=== PATIENT | female | born 1985 | race Caucasian/White ===

== ENCOUNTER 2017-04-25 13:25 | Emergency (ER) | END 2017-04-25 16:12 | disposition left against medical advice (07) | LOC: UCCORT 13:25 | DX: H57.9 Unspecified disorder of eye and adnexa (principal); Z53.21 Procedure and treatment not carried out due to patient leaving prior to being seen by health care provider ==

== ENCOUNTER 2020-07-12 14:07 | Inpatient (IN) ==
[2020-07-12] MEDS ORDERED: Morphine 4 MG/ML VIAL (1 ml) IV ONE (17:47)
[2020-07-12] MEDS ORDERED: NS 0.9% 1000 ml BAG 1,000 ML IV ONE (17:47)
[2020-07-12] MEDS ORDERED: cefTRIAXone 1 gm/50 mL NS BAG 1 GM/50 ML BAG IV ONE (17:49)
[2020-07-12] MEDS ORDERED: metroNIDAZOLE IV 500 MG/100ML 500 MG/100 ML BAG IVPB ONE (17:50)
[2020-07-12 18:24] LABS: ABS Eosinophils 0.1 10^3/ul (0-0.6); ABS Lymphocytes 1.5 10^3/ul (1.0-4.8); ABS Monocytes 0.5 10^3/ul (0-0.8); ABS Neutrophils 6.7 10^3/ul (1.5-7.7); Eosinophil % 0.6 %; Hematocrit 39 % (35-47); Lymphocyte % 16.7 %; Mean Corpuscular HGB Conc 33 g/dL (31-36); Mean Corpuscular Hemoglobin 31 pg (27-31); Mean Corpuscular Volume 94 fL (80-97); Platelet Count 246 10^3/uL (150-450); Red Blood Count 4.14 10^6 /uL (3.70-4.87); Red Cell Distribution Width 14 % (10-15); White Blood Count 8.8 10^3/uL (3.5-10.8)
[2020-07-12] MEDS ORDERED: Buffered Lidocaine 1% SYRIN 1 ml INTRADERM ONE (18:35)
[2020-07-12 18:46] LABS: Anion Gap 7 mmol/L (2-11); Blood Urea Nitrogen 7 mg/dL (6-24); C Reactive Protein 109.99 mg/L (<8.01); CO2 Carbon Dioxide 27 mmol/L (22-32); Calcium 9.7 mg/dL (8.6-10.3); Chloride 101 mmol/L (101-111); EGFR African American 141.5 (>60); Glucose 78 mg/dL (70-100); Potassium 3.5 mmol/L (3.5-5.0); Sodium 135 mmol/L (135-145)
[2020-07-12 18:50] LABS: HCG Pregnancy < 0.60 mIU/mL
[2020-07-12] MEDS ORDERED: Lactated Ringers 1000 ml BAG 1,000 ML IV SCH ×2 (19:00→22:00)
[2020-07-12 19:32] LABS: Erythrocyte Sed Rate 23 mm/Hr (0-19)
[2020-07-12] MEDS ORDERED: Ondansetron 4 mg VIAL 2 MG/ML 2 ml VIAL ONE (19:37)
[2020-07-12] MEDS ORDERED: Midazolam 2 mg/2 ml VIAL 1 mg/ml 2 ml VIAL (2 mg) ONE (19:37)
[2020-07-12] MEDS ORDERED: Propofol 10 MG/ML 20 ML BTL ONE ×2 (19:37→20:27)
[2020-07-12] MEDS ORDERED: Lidocaine 2% PF 5 ML VIAL ONE (19:37)
[2020-07-12] MEDS ORDERED: fentaNYL 100 mcg/2 ml 50 MCG/ML VIAL ONE ×3 (19:37→21:18)
[2020-07-12] MEDS ORDERED: Dexamethasone IV 4 MG/ML VIAL 1 ml VIAL ONE (19:37)
[2020-07-12] MEDS ORDERED: Ketamine HCL 50 mg/ml 10 ml VIAL (500 MG) ONE (20:26)
[2020-07-12] MEDS ORDERED: Bupivacaine 0.25% SDV 30 ML ONE (20:28)
[2020-07-12] MEDS ORDERED: diPHENhydraMINE 25 mg TAB PO PRN (21:05)
[2020-07-12] MEDS ORDERED: Lactulose 30 ml UDC PO PRN (21:05)
[2020-07-12] MEDS ORDERED: Ondansetron 4 mg VIAL 2 MG/ML 2 ml VIAL IV PRN ×2 (21:05→21:11)
[2020-07-12] MEDS ORDERED: Ondansetron ODT 4 mg TAB 4 MG TAB PO PRN (21:05)
[2020-07-12] MEDS ORDERED: Magnesium Hydroxide LIQ 30 ML UDC PO PRN (21:05)
[2020-07-12] MEDS ORDERED: diPHENhydraMINE IV 50 MG/ML 1 ml VIAL (BENADRYL) IV PRN (21:05)
[2020-07-12] MEDS: fentaNYL 100 mcg/2 ml 50 MCG/ML VIAL IV PRN ×4 (21:08→21:39)
[2020-07-12] MEDS ORDERED: DiMENhydriNATE IV 50 mg/ml 1 ml VIAL IV PUSH PRN (21:11)
[2020-07-12] MEDS ORDERED: Naloxone 0.4 mg VIAL 0.4 mg/ml 1 ml VIAL IV PRN (21:11)
[2020-07-12] MEDS ORDERED: HYDROcodone/ACETAMIN 5/325 mg TAB PO PRN (21:11)
[2020-07-12] MEDS ORDERED: Piperacillin/Tazobac ADVAN 3.375 GM in NS 0.9% 100 ml BAG 100 ML IV ONE (21:18)
[2020-07-12] MEDS ORDERED: HYDROcodone/ACETAMIN 5/325 mg TAB ONE (21:18)
[2020-07-12] MEDS ORDERED: Zosyn per Pharmacy NOTE FOLLOW UP SCH (22:00)
[2020-07-13] MEDS: ZOSYN 3.375 GM Q8H per EXTENDED INFUSION IV SCH ×3 (04:07→20:12)
[2020-07-13] MEDS: Magnesium Hydroxide LIQ 30 ML UDC PO SCH ×2 (10:01→20:13)
[2020-07-13] MEDS: Vitamin THERAPEUTIC TAB PO SCH (10:02)
[2020-07-14] MEDS: ZOSYN 3.375 GM Q8H per EXTENDED INFUSION IV SCH ×3 (04:32→19:43)
[2020-07-14 09:10] LABS: ABS Eosinophils 0.1 10^3/ul (0-0.6); ABS Lymphocytes 2.1 10^3/ul (1.0-4.8); ABS Monocytes 0.3 10^3/ul (0-0.8); ABS Neutrophils 2.4 10^3/ul (1.5-7.7); Eosinophil % 1.9 %; Hematocrit 34 % (35-47); Hemoglobin 11.2 g/dL (12.0-16.0); Lymphocyte % 41.8 %; Mean Corpuscular HGB Conc 33 g/dL (31-36); Mean Corpuscular Hemoglobin 32 pg (27-31); Mean Corpuscular Volume 95 fL (80-97); Mean Platelet Volume 8.9 fL (7.4-10.4); Platelet Count 210 10^3/uL (150-450); Red Blood Count 3.54 10^6 /uL (3.70-4.87); Red Cell Distribution Width 14 % (10-15)
[2020-07-14] MEDS: Magnesium Hydroxide LIQ 30 ML UDC PO SCH ×2 (09:34→21:55)
[2020-07-14] MEDS: Vitamin THERAPEUTIC TAB PO SCH (09:35)
[2020-07-14] MEDS ORDERED: Buffered Lidocaine 1% SYRIN 1 ml INTRADERM ONE (14:45)
[2020-07-15] MEDS: ZOSYN 3.375 GM Q8H per EXTENDED INFUSION IV SCH ×2 (04:12→12:07)
[2020-07-15] MEDS: Magnesium Hydroxide LIQ 30 ML UDC PO SCH (08:16)
[2020-07-15] MEDS: Vitamin THERAPEUTIC TAB PO SCH (08:54)
[2020-07-15 16:34] VITALS: BP 133/88
== END 2020-07-15 18:12 | disposition home or self-care (01) | DRG 364 ==
LOC: ED 14:07 → SSU 22:30
PROVIDERS: ADMIT Internal Medicine; ATTEND Orthopaedic Surgery Hand Surgery